=== PATIENT | male | born 1960 | race Caucasian/White ===

== ENCOUNTER → 2017-11-09 | Day surgery (SDC) | payer OTHER ==
--- NOTE | 2017-11-09 15:18 | GOP ---
[f rep st] OPERATIVE REPORT DATE OF OPERATION: 11/09/2017 SURGEON: Shahriar Hart MD PREOPERATIVE DIAGNOSIS: Elevated Prostate-specific antigen. POSTOPERATIVE DIAGNOSIS: Elevated Prostate-specific antigen. PROCEDURE PERFORMED: Transrectal ultrasound-guided prostate biopsies. FINDINGS: INDICATIONS: The patient is a 57-year-old male with elevated PSA. After discussing options, he elec bing to come in for ultrasound-guided prostate biopsies. DESCRIPTION OF PROCEDURE: After informed consent and with the patient in the left lateral decubitus position, the prostatic ultrasound was inserted into the rectum. Measurements were obtained. The pe riprosthetic tissue was anesthetized with 1% lidocaine. Core biopsies of the right and left base mid and apical tissue were obtained. The patient tolerated the procedure well and was sent home in stab le condition. /[id number]/MODL
== END | disposition home or self-care (01) ==
LOC: BMCIMAGING 07:20
PROVIDERS: ATTEND Urology
PROC: 0VB07ZX Excision of Prostate, Via Natural or Artificial Opening, Diagnostic (ICD-10-PCS; principal; 2017-11-09)
DX: R97.20 Elevated prostate specific antigen [PSA] (principal)

== ENCOUNTER → 2018-07-11 | Outpatient (CLI) | payer OTHER ==
[~2018-07-11] MED LIST: GADOBUTROL 10 ML VIAL IVP ONE
== END ==
LOC: FIMAGING 08:57
PROVIDERS: ATTEND Urology
DX: R97.20 Elevated prostate specific antigen [PSA] (principal); R93.5 Abnormal findings on diagnostic imaging of other abdominal regions, including retroperitoneum
CPT/HCPCS: A9585